=== PATIENT | female | born 1965 | race Caucasian/White ===

== ENCOUNTER 2017-05-12 15:39 | Inpatient (IN) | payer OTHER ==
[~2017-05-12] VITALS: Ht 147.3 cm; Wt 63.5 kg
[~2017-05-12 15:39] MED LIST: LISI10TA2 PO
[2017-05-12 15:40] VITALS: BP 123/76
[2017-05-12] MEDS ORDERED: LISI-420 PO (15:49)
[2017-05-12] MEDS ORDERED: PARO20TA13 PO (15:49)
[2017-05-12] MEDS ORDERED: ORE25 PO (15:49)
[2017-05-12] MEDS ORDERED: ASPI81TA3 PO (15:49)
[2017-05-12] MEDS ORDERED: NACL 0.9% 1,000 ML IV SCH (16:12)
[2017-05-12 16:35] LABS: BASOPHILS # (AUTO) 0.6 K/uL (0.00-0.22); EOSINOPHILS # (AUTO) 0.2 K/uL (0-0.4); HEMOGLOBIN 14.5 g/dL (12.0-16.0); MEAN CORPUSCULAR HEMOGLOBIN 27 pg (27-31); MEAN CORPUSCULAR HGB CONC 32 g/dL (33-37); MEAN CORPUSCULAR VOLUME 82 fL (80-94); MONOCYTES # (AUTO) 0.5 K/uL (0.8-1.0); NEUTROPHILS # (AUTO) 8.7 K/uL (1.8-7.7); PLATELET COUNT (AUTO) 336 K/uL (140-450); RED BLOOD CELL COUNT(AUTO) 5.47 MIL/uL (4.20-5.40); RED CELL DISTRIBUTION WIDTH 14.1 % (11.6-13.7)
[2017-05-12 16:55] LABS: PROTHROMBIN TIME 10.3 secs (10.8-13.4)
[2017-05-12 16:57] LABS: ALBUMIN 3.9 g/dL (3.4-5.0); ANION GAP 10.3 (8-16); CARBON DIOXIDE 30.6 mmol/L (21-32); TOTAL BILIRUBIN 0.4 mg/dL (0.0-1.0)
[2017-05-12 17:12] LABS: POTASSIUM 2.9 mmol/L (3.5-5.1)
[2017-05-12] MEDS ORDERED: POTASSIUM CHL 20 MEQ/D5-1/2NS 1,000 ML IV ONE (17:20)
[2017-05-12] MEDS ORDERED: POTASSIUM CHLORIDE 10 MEQ TABER PO ONE (19:55)
[2017-05-12] MEDS ORDERED: ASPIRIN 81 MG TAB.CHEW PO ONE (20:20)
[2017-05-12] MEDS ORDERED: ONDANSETRON 4 MG/2 ML VIAL IVP PRN (20:25)
[2017-05-12] MEDS ORDERED: ACETAMINOPHEN 325 MG TAB PO PRN (20:25)
[2017-05-12] MEDS ORDERED: MORPHINE SULFATE 2 MG/ML SYR IVP PRN (20:25)
[2017-05-12] MEDS ORDERED: MORPHINE SULFATE 2 MG/ML SYR IVP ONE (20:40)
[2017-05-13 00:10] VITALS: BP 124/86
[2017-05-13 01:36] LABS: CREATINE KINASE MB 0.7 ng/mL (0-3.6)
[2017-05-13 03:50] VITALS: BP 139/78
[2017-05-13 08:00] VITALS: BP 121/74
[2017-05-13] MEDS ORDERED: ENOXAPARIN 40 MG/0.4 ML SYR SUBQ SCH (09:00)
[2017-05-13] MEDS: ASPIRIN 81 MG TAB.CHEW PO SCH ×2 (09:00→09:02)
[2017-05-13] MEDS ORDERED: PARoxetine 20 MG TAB PO SCH (09:00)
[2017-05-13] MEDS: LISINOPRIL 20 MG TAB PO SCH ×2 (09:00→09:01)
[2017-05-13 09:39] LABS: BASOPHILS # (AUTO) 0.1 K/uL (0.00-0.22); BASOPHILS % (AUTO) 0.9 % (0.0-2.0); EOSINOPHILS # (AUTO) 0.2 K/uL (0-0.4); EOSINOPHILS % (AUTO) 2.2 % (0.0-4.0); HEMATOCRIT 43.4 % (36-48); HEMOGLOBIN 13.9 g/dL (12.0-16.0); LYMPHOCYTES # (AUTO) 1.3 K/uL (2.5-16.5); LYMPHOCYTES % (AUTO) 14.2 % (20.5-51.1); MEAN CORPUSCULAR HEMOGLOBIN 27 pg (27-31); MEAN CORPUSCULAR HGB CONC 32 g/dL (33-37); MEAN CORPUSCULAR VOLUME 83 fL (80-94); MONOCYTES # (AUTO) 0.6 K/uL (0.8-1.0); MONOCYTES % (AUTO) 6.1 % (1.7-9.3); NEUTROPHILS % (AUTO) 76.6 % (42.2-75.2); PLATELET COUNT (AUTO) 317 K/uL (140-450); RED CELL DISTRIBUTION WIDTH 14.2 % (11.6-13.7); WHITE BLOOD COUNT (AUTO) 9.2 K/uL (4.8-10.8)
[2017-05-13 10:01] LABS: ANION GAP 9.4 (8-16); POTASSIUM 4.4 mmol/L (3.5-5.1)
[2017-05-13 10:07] LABS: ALBUMIN 3.4 g/dL (3.4-5.0); TOTAL BILIRUBIN 0.5 mg/dL (0.0-1.0)
[2017-05-13 10:29] LABS: CREATINE KINASE MB 0.6 ng/mL (0-3.6)
[2017-05-13] MEDS ORDERED: REGADENOSON 0.4 MG/5 ML SYR IV SCH (11:08)
[2017-05-13 12:00] VITALS: BP 132/76
[2017-05-13 16:00] VITALS: BP 134/78
[2017-05-13 18:31] VITALS: BP 134/78
== END 2017-05-13 19:00 | disposition home or self-care (01) | DRG 203 ==
LOC: MED 15:39 → MTU 20:25
PROVIDERS: ADMIT Hospitalist; ATTEND Hospitalist
DX: R07.89 Other chest pain (principal); I10 Essential (primary) hypertension; E78.5 Hyperlipidemia, unspecified
CPT/HCPCS: 36415; 71010; 71275; 78454; 80053; 81025; 82150; 82550; 82553; 83690; 83880; 84484; 85025; 85379; 85610; 85730; 87081; 93005; 93017; 96361; 96365; 96366; 99285; J1650; J2785; J7030; Q0092; Q9967

== ENCOUNTER 2018-06-13 20:24 | Emergency (ER) | payer OTHER ==
[~2018-06-13] VITALS: Ht 149.9 cm; Wt 68.9 kg
[~2018-06-13 20:24] MED LIST changes: +ASPI81TA3 PO; +LISI-420 PO; -LISI10TA2 PO; +ORE25 PO; +PARO20TA13 PO
[2018-06-13 20:35] VITALS: BP 143/84
--- NOTE | 2018-06-13 20:39 | NUR ---
PT TO ER BED 6
--- NOTE | 2018-06-13 20:40 | NUR ---
Report given to April FRENCH
[2018-06-13] MEDS: KETOROLAC 60 MG/2 ML VIAL IM ONE (21:36)
--- NOTE | 2018-06-13 21:45 | NUR ---
PT PRESENTED ER WITH C/O PAIN TO THE LOWER BACK, FLANK PAIN X 3DAYS. PT STATES SHE FEELS THE URGE TO URINATE BUT IS ONLY ABLE TO PRODUCE MINIMUM URINE AND HAS AN ODOR. PT DENIES FEVER, N/V/D. NKA, MEDICAL HX IS HTN. PT HAS TENDERNESS TO PALPATION ON LOWER BACK.SKIN IS PINK/WARM/DRY; AAOX4 WITH EVEN AND STEADY GAIT; LUNGS CLEAR BL; HR EVEN AND REGULAR; PATIENT STATES PAIN OF 8/10 AT THIS TIME; VSS; PATIENT POSITIONED FOR COMFORT; HOB ELEVATED; BEDRAILS UP X2; BED DOWN. ER MD MADE AWARE OF PT STATUS.
[2018-06-13 22:01] VITALS: BP 138/85
--- NOTE | 2018-06-13 22:02 | NUR ---
Patient discharged with v/s stable. Written and verbal after care instructions given and explained. Patient alert, oriented and verbalized understanding of instructions. Ambulatory with steady gait. All questions addressed prior to discharge. ID band removed. Patient advised to follow up with PMD. Rx of MOTRIN, MEDROL, TRAMADOL given. Patient educated on indication of medication including possible reaction and side effects. Opportunity to ask questions provided and answered.
== END 2018-06-13 22:02 | disposition home or self-care (01) ==
LOC: MED 20:24
DX: M43.16 Spondylolisthesis, lumbar region (principal); R19.7 Diarrhea, unspecified; I10 Essential (primary) hypertension; F17.210 Nicotine dependence, cigarettes, uncomplicated; Z79.899 Other long term (current) drug therapy; Z79.82 Long term (current) use of aspirin
CPT/HCPCS: 72100; 81002; 81025; 96372; 99283; 99284; J1885

== ENCOUNTER 2018-10-27 23:55 | Emergency (ER) | payer OTHER ==
[~2018-10-27] VITALS: Ht 147.3 cm; Wt 66.7 kg
[2018-10-28 00:10] VITALS: BP 139/70
--- NOTE | 2018-10-28 00:13 | NUR ---
TO LOBBY A/W BED, AMBULATORY, ERMHaile NOTED
--- NOTE | 2018-10-28 00:49 | NUR ---
PT AMBULATED TO ER BED 05
[2018-10-28] MEDS ORDERED: KETOROLAC 60 MG/2 ML VIAL IM ONE (01:35)
--- NOTE | 2018-10-28 01:40 | NUR ---
PT BIB SELF FOR R FLANK PAIN X1 WEEK. PT REPORTS SHARP STABING PAIN AT 8/10 THAT START ON HER R BACK AND RADIATES TO FRONT. PRESENCE OF RASH ALONG WHERE PT REPORTS PAIN. PT DENIES N/V OR FEVER. ER MD TO SEE PT. SAFETY PRECAUTIONS IN PLACE, WILL CONTINUE TO MONITOR.
[2018-10-28 02:11] VITALS: BP 148/87
--- NOTE | 2018-10-28 02:13 | NUR ---
Patient discharged with v/s stable. Written and verbal after care instructions given and explained. Patient alert, oriented and verbalized understanding of instructions. Ambulatory with steady gait. All questions addressed prior to discharge. ID band removed. Patient advised to follow up with PMD. Rx of MOTRIN, ACYCLOVIR, PREDNISONE given. Patient educated on indication of medication including possible reaction and side effects. Opportunity to ask questions provided and answered.
== END 2018-10-28 02:11 | disposition home or self-care (01) ==
LOC: MED 23:55
DX: B02.9 Zoster without complications (principal); R10.9 Unspecified abdominal pain; I10 Essential (primary) hypertension; Z79.82 Long term (current) use of aspirin; Z79.899 Other long term (current) drug therapy; Z90.49 Acquired absence of other specified parts of digestive tract
CPT/HCPCS: 81002; 81025; 96372; 99283; J1885

== ENCOUNTER 2019-03-04 10:46 | Emergency (ER) | payer SELFPAY ==
[~2019-03-04] VITALS: Ht 147.3 cm; Wt 70.3 kg
[2019-03-04 10:48] VITALS: BP 139/88
--- NOTE | 2019-03-04 10:48 | NUR ---
Patient ambulated to bed 11. RN evaluating patient at bedside.
[2019-03-04] MEDS ORDERED: MECLIZINE 25 MG TAB PO ONE (10:55)
--- NOTE | 2019-03-04 10:58 | NUR ---
PT C/O DIZZINESS SINCE THIS AM. STATES FEELS SPINNING HEAVILY. DENIES LOC, N/V/D. AT THE BEDSIDE SEEING PT. HX OF HTN, TAKES LISINOPRIL AT HOME. PT A0X2-3. HAS MILD WEAKNESS WHEN SQUEEZING HAND. WILL CONTINUE TO MONITOR PT.
--- NOTE | 2019-03-04 11:10 | NUR ---
PT WENT FOR CT WITH TECH.
--- NOTE | 2019-03-04 12:31 | NUR ---
Dr. Toth re-evaluating patient at bedside.
[2019-03-04 12:58] VITALS: BP 133/71
--- NOTE | 2019-03-04 12:59 | NUR ---
Patient discharged with v/s stable. Written and verbal after care instructions given and explained. Patient alert, oriented and verbalized understanding of instructions. Wheel Chair Assisted with to home. All questions addressed prior to discharge. ID band removed. Patient advised to follow up with PMD. Rx of MECLIZINE HCL given. Patient educated on indication of medication including possible reaction and side effects. Opportunity to ask questions provided and answered.
== END 2019-03-04 12:45 | disposition home or self-care (01) ==
LOC: MED 10:46
DX: H81.10 Benign paroxysmal vertigo, unspecified ear (principal); I10 Essential (primary) hypertension; Z90.89 Acquired absence of other organs; Z79.82 Long term (current) use of aspirin; Z79.899 Other long term (current) drug therapy
CPT/HCPCS: 70450; 93005; 99284; J8597

== ENCOUNTER 2022-09-14 02:37 | Emergency (ER) | payer OTHER ==
[~2022-09-14] VITALS: Ht 147.3 cm; Wt 63.5 kg
[~2022-09-14 02:37] MED LIST changes: +HYDR25TA33 PO; -LISI-420 PO; +LISI-487 PO; -ORE25 PO
[2022-09-14 02:40] VITALS: BP 126/90
--- NOTE | 2022-09-14 02:43 | NUR ---
TO LOBBY A/W BED AMBULATORY
[2022-09-14 04:05] VITALS: BP 126/90
[2022-09-14] MEDS ORDERED: BENZ200C4 PO (04:48)
[2022-09-14] MEDS ORDERED: METH4TAB27 PO (04:48)
--- NOTE | 2022-09-14 04:54 | NUR ---
PT PROVIDED WITH D/C AND MEDICATION INFORMATION BY DR. CHAVES. RX OF METHYLPRED AND BEZONATATE GIVEN
[2022-09-14] MEDS ORDERED: ePHEDrine 50 MG/ML VIAL ONE (21:08)
== END 2022-09-14 04:54 | disposition home or self-care (01) ==
LOC: MED 02:37
DX: J45.909 Unspecified asthma, uncomplicated (principal); I10 Essential (primary) hypertension; Z79.899 Other long term (current) drug therapy; Z79.82 Long term (current) use of aspirin
CPT/HCPCS: 71045; 93005; 99283